=== PATIENT | female | born 1935 | race Caucasian/White ===

== ENCOUNTER 2022-09-29 15:33 | Emergency (ER) | payer BC ==
[~2022-09-29] VITALS: Ht 165.1 cm; Wt 50.0 kg
[2022-09-29] MEDS ORDERED: amiodarone/D5 360MG/200ML BAG 200 ML IV SCH (16:00)
[2022-09-29] MEDS ORDERED: amiodarone 150mg/dext, iso-os 100 ML IV ONE (16:00)
[2022-09-29 16:37] LABS: BASOPHILS # (AUTO) 0.1 X10'3 (0-0.2); EOSINOPHILS # (AUTO) 0.4 X10'3 (0-0.9); EOSINOPHILS % (AUTO) 4.3 % (0-6); HEMATOCRIT 37.6 % (35.0-45.0); HEMOGLOBIN 12.2 g/dl (12.0-16.0); LYMPHOCYTES # (AUTO) 1.5 X10'3 (1.1-4.8); LYMPHOCYTES % (AUTO) 16.3 % (21-51); MEAN CORPUSCULAR HEMOGLOBIN 29.5 PG (27.0-31.0); MEAN CORPUSCULAR HGB CONC 32.5 g/dL (33.0-36.5); MEAN CORPUSCULAR VOLUME 90.6 FL (78-98); MEAN PLATELET VOLUME 7.7 FL (7.4-10.4); MONOCYTES # (AUTO) 0.7 X10'3 (0-0.9); MONOCYTES % (AUTO) 7.6 % (2-12); NEUTROPHILS # (AUTO) 6.5 X10'3 (1.8-7.7); NEUTROPHILS % (AUTO) 70.8 % (42-75); PLATELET COUNT 361 X10'3 (140-440); RED BLOOD COUNT 4.15 X10'6 (4.20-5.60); RED CELL DISTRIBUTION WIDTH 14.2 % (11.5-14.5); WHITE BLOOD COUNT 9.2 X10'3 (4.5-11.0)
--- NOTE | 2022-09-29 16:47 | NUR ---
AFTER AMIODARONE BLOUS AND DRIP PT HEART RATE HAS DECREASED TO THE 90'S
[2022-09-29 16:50] LABS: APTT 26 SECONDS (22-32)
[2022-09-29 16:54] LABS: ALANINE AMINOTRANSFERASE 20 U/L (12-78); ALBUMIN 3.5 G/DL (3.4-5.0); ALBUMIN/GLOBULIN RATIO 1.1 (1.1-1.5); ALKALINE PHOSPHATASE 113 IU/L (46-116); ANION GAP 8 (8-16); ASPARTATE AMINO TRANSFERASE 26 U/L (10-37); BILIRUBIN,TOTAL 0.3 MG/DL (0.1-1.0); BLOOD UREA NITROGEN 24 MG/DL (7-18); CALCIUM 8.7 MG/DL (8.5-10.1); CHLORIDE 105 MMOL/L (99-107); GLUCOSE 114 MG/DL (70-104); POTASSIUM 3.7 MMOL/L (3.5-5.1); SODIUM 142 MMOL/L (135-145); TOTAL CARBON DIOXIDE 28.9 MMOL/L (24-32); TOTAL PROTEIN 6.8 G/DL (6.4-8.2); eGFR 42 ML/MIN
[2022-09-29 17:04] LABS: MAGNESIUM 2.3 MG/DL (1.5-2.4)
[2022-09-29] MEDS ORDERED: amiodarone 200mg tablet PO ONE (18:00)
[2022-09-29] MEDS ORDERED: AMIO200T27 PO (18:27)
[2022-09-29 19:53] VITALS: BP 162/60
== END 2022-09-29 20:03 | disposition home or self-care (01) ==
LOC: ER 15:33
DX: I48.91 Unspecified atrial fibrillation (principal)
CPT/HCPCS: 36415; 71045; 80053; 83735; 83880; 84439; 84443; 84484; 85025; 85610; 85730; 93005; 96365; 96366; 99285; J0282

== ENCOUNTER 2023-09-07 16:10 | Emergency (ER) | payer BC ==
[~2023-09-07] VITALS: Ht 157.5 cm; Wt 56.0 kg
[~2023-09-07 16:10] MED LIST: AMIO200T27 PO
[2023-09-07 16:45] LABS: BASOPHILS # (AUTO) 0.1 X10'3 (0-0.2); BASOPHILS % (AUTO) 0.6 % (0-1); EOSINOPHILS # (AUTO) 0.1 X10'3 (0-0.9); EOSINOPHILS % (AUTO) 1.5 % (0-6); HEMATOCRIT 38.6 % (35.0-45.0); LYMPHOCYTES # (AUTO) 1.6 X10'3 (1.1-4.8); LYMPHOCYTES % (AUTO) 19.1 % (21-51); MEAN CORPUSCULAR HEMOGLOBIN 30.9 PG (27.0-31.0); MEAN CORPUSCULAR HGB CONC 33.8 g/dL (33.0-36.5); MEAN CORPUSCULAR VOLUME 91.7 FL (78-98); MEAN PLATELET VOLUME 7.7 FL (7.4-10.4); MONOCYTES # (AUTO) 0.6 X10'3 (0-0.9); MONOCYTES % (AUTO) 6.9 % (2-12); NEUTROPHILS # (AUTO) 5.9 X10'3 (1.8-7.7); NEUTROPHILS % (AUTO) 71.9 % (42-75); PLATELET COUNT 431 X10'3 (140-440); RED BLOOD COUNT 4.21 X10'6 (4.20-5.60); RED CELL DISTRIBUTION WIDTH 13.7 % (11.5-14.5); WHITE BLOOD COUNT 8.2 X10'3 (4.5-11.0)
[2023-09-07 17:06] LABS: ALBUMIN 3.4 G/DL (3.4-5.0); ANION GAP 9 (8-16); BLOOD UREA NITROGEN 22 MG/DL (7-18); BUN/CREATININE RATIO 12.6 (10.0-20.0); CALCIUM 9.1 MG/DL (8.5-10.1); CHLORIDE 103 MMOL/L (99-107); CREATININE 1.75 MG/DL (0.40-0.90); GLUCOSE 106 MG/DL (70-104); POTASSIUM 3.9 MMOL/L (3.5-5.1); PRO BRAIN NATRIURETIC PEPTIDE 441 PG/ML (0-450); SODIUM 142 MMOL/L (135-145); TOTAL CARBON DIOXIDE 29.7 MMOL/L (24-32); eCRCL 17 ML/MIN; eGFR 27 ML/MIN
[2023-09-07 20:15] VITALS: TEMP 97.5
[2023-09-08] MEDS ORDERED: APIX2.5T PO (00:15)
[2023-09-08] MEDS ORDERED: IRBE75TA15 PO (00:20)
[2023-09-08] MEDS ORDERED: BIMA2.5D RIGHTEYE (00:20)
[2023-09-08] MEDS ORDERED: FURO-149 PO (00:20)
[2023-09-08] MEDS ORDERED: BIMA2.5D LEFTEYE (00:20)
[2023-09-08] MEDS ORDERED: PSYL0.4C2 PO (00:21)
[2023-09-08 00:55] VITALS: BP 148/56; PULSE 64; RESP 12; O2SAT 98
== END 2023-09-08 01:09 | disposition home or self-care (01) ==
LOC: ER 16:11
DX: R00.2 Palpitations (principal); I11.0 Hypertensive heart disease with heart failure; I50.9 Heart failure, unspecified; I48.91 Unspecified atrial fibrillation; Z79.899 Other long term (current) drug therapy
CPT/HCPCS: 36415; 71045; 80048; 83880; 84484; 85025; 93005; 99285